=== PATIENT | female | born 1955 ===

== ENCOUNTER 2017-08-28 21:55 | Observation (INO) | payer OTHER ==
--- NOTE | 2017-08-28 22:02 | PDOC ---
History of Present Illness - General Chief Complaint: CVA/TIA Stated Complaint: NUMBNESS LEFT SIDE OF BODY Time Seen by Provider: 08/28/17 22:00 History Source: Patient, Family Exam Limitations: Language Barrier - History of Present Illness Initial Comments: 08/28/17 22:24 This is a 62-year-old female brought in by her family for evaluation of left- sided weakness and numbness. History is via interpretation of the family as patient is [place] and recently new to this country. 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 As per family patient said that when she woke up this morning she had numbness and weakness on her left side the weakness resolved after about 20 minutes but she has really had residual numbness in addition to that the person that was doing the interpretation said to me that a lot of the things she was saying more making any sense and that she appeared to be somewhat confused. The words were clear but he didn't make any sense. PAST MEDICAL HISTORY: no significant history PAST SURGICAL HISTORY: no significant history FAMILY HISTORY: no pertinant history SOCIAL HISTORY: Pt lives with family and is employed. MEDICATIONS: reviewed ALLERGIES: As per nursing notes Review of Systems General: No fevers or chills, no weakness, no weight loss HEENT: No change in vision. No sore throat,. No ear pain CardioVascular: No chest pain or shortness of breath Respiratory:No cough, or wheezing. Gastrointestinal: no nausea, vomitting, diarrhea or constipation, No rectal bleeding Genitourinary: No dysuria, hematuria, or frequency Musculoskeletal: No joint or muscle pain or swelling Neurologic: No headache, vertigo, dizziness or loss of consciousness Psychiatric: nor depression Skin: No rashes or easy bruising Endocrine: no increased thirst or abnormal weight change Allergic: no skin or latex allergy All other systems reviewed and normal Exam: General: Well-nourished well-developed individual, no acute distress HEENT: Throat: Normal, tonsils normal, no erythema or exudate Neck: Supple, no meningeal signs, no lymphadenopathy Eyes::Pupils equal reactive and round, extraocular motion intact Chest: Nontender to palpation Cardiac: S1-S2 normal, regular rate and rhythm, no murmurs rubs or gallops Respiratory: Lungs clear to auscultation bilateral Abdomen: Soft, nondistended, normal bowel sounds, nontender to palpation diffusely Extremities: Warm, dry, no cyanosis, clubbing, or edema Skin: No rashes Neuro: See NIH stroke scale. Psych: Normal mood and affect Medical decision making this is a 8-year-old female brought in by her family for evaluation of a CVA. Patient woke up this morning with left-sided weakness and numbness. Patient has history significant for prior CVA. Patient said the weakness resolved after about 20 minutes and that the numbness has persisted. Here in the emergency room patient has an NIH stroke scale of 3. However was difficult to do as it was via a post splitter and patient did appear to have difficulty following instructions and at one point her family member who is translating said that her verbal responses did not make any sense. We'll obtain a workup including head CT, EKG, CBC, comp, cardiac enzymes, chest x-ray. Patient will need an admission. 12MN This is a 62-year-old female with history of high cholesterol who comes in complaining of left-sided numbness. Patient had some left-sided weakness about 12 hours prior that had resolved. Patient had a workup including head CT head CT was read as negative for any acute pathology. Discussed case with Dr. Dela Cruz. From neurology who recommended the patient be admitted started on a statin however patient is on a cholesterol lowering drug and does not know the name and it may possibly be a statin. Patient was given an aspirin and will need a MRI in the morning without contrast as per Dr. Dela Cruz. Discussed admission with the hospitalist was accepted patient for admission to a observation bed. . Signout given to the admitting hospitalist, who accepts the patient. Discussed plan with the patient family at bedside, Patient and family aware of the plan and agree. Patient is clinically unchanged and stable. Past History - Past Medical History Allergies/Adverse Reactions: Allergies Allergy/AdvReac Type Severity Reaction Status Date / Time No Known Allergies Allergy Verified 08/28/17 21:57 Home Medications: Ambulatory Orders Acetaminophen 500 mg PO BID 08/29/17 Atacand 8 mg PO DAILY 08/29/17 Lipitor 5 mg PO DAILY 08/29/17 Metformin HCl 500 mg PO BID 08/29/17 Prevacid 30 mg PO DAILY 08/29/17 - Suicide/Smoking/Psychosocial Hx Smoking History: Never smoked Hx Alcohol Use: No Drug/Substance Use Hx: No *Physical Exam - Vital Signs Last Vital Signs Temp Pulse Resp BP Pulse Ox 98.5 F 18 132/70 99 08/28/17 21:57 08/28/17 21:57 08/28/17 21:57 08/28/17 21:57 NIH Stroke Scale - Initial Evaluation Level of consciousness: Alert Ask patient the month and their age: Answers both correctly Ask patient to open & close eyes; make fist and let go: Obeys both correctly Best gaze (horizontal eye movement): Normal Visual field testing: No visual field loss Facial paresis (Show teeth/raise eyebrows/close eyes tight): Normal symmetrical movement Motor Function: Left Arm: Normal Motor Function: Right Arm: Normal (extends arm 90 (or 45) degrees for 10 seconds without drift Motor Function: Left Leg: Normal (extends leg 30 degrees for 5 seconds without drift) Motor Function: Right Leg: Normal (extends leg 30 degrees for 5 seconds without drift) Limb Ataxia: No ataxia Sensory(Use pinprick test arms,legs,trunk,face/side to side): Severe to total sensory loss Best language (Describe picture, name items, read sentences): Mild to moderate aphasia Dysarthria (read several words): Normal articulation Extinction and Inattention: No abnormality - Total Score NIH Stroke Scale Score: 3 Discharge Disposition - Diagnosis Cerebrovascular accident (CVA) Qualifiers: CVA mechanism: unspecified Qualified Code(s): I63.9 - Cerebral infarction, unspecified - Discharge Dispostion Condition at time of disposition: Good Decision to Admit order: Yes - Referrals - Patient Instructions - Post Discharge Activity
[2017-08-28 22:42] LABS: URINE APPEARANCE Clear; URINE BILIRUBIN Negative (NEGATIVE); URINE GLUCOSE (UA) Negative (NEGATIVE); URINE KETONE Negative (NEGATIVE); URINE NITRITE Negative (NEGATIVE); URINE PROTEIN Negative (NEGATIVE); URINE UROBILINOGEN 0.2 (0.2-1.0)
[2017-08-28 22:43] LABS: URINE COLOR YELLOW; URINE LEUK ESTERASE TRACE (NEGATIVE)
[2017-08-28 22:48] LABS: URINE BACTERIA FEW /hpf (NEGATIVE); URINE RBC 0-2 /hpf (0-3)
[2017-08-29] MEDS ORDERED: ASPIRIN 81 MG CHEWABLE TABLETS PO ONE (00:04)
[2017-08-29] MEDS ORDERED: ASPIRIN 81 MG CHEWABLE TABLETS ONE (00:15)
[2017-08-29 00:34] LABS: BASO % 0.4 % (0-2.0); HEMOGLOBIN 12.2 GM/dL (10.7-15.3); LYMPH % 36.7 % (8-40); MCH 28.2 pg (25.7-33.7); MCHC 33.1 g/dl (32.0-36.0); MEAN CELL VOLUME 85.4 fl (80-96); MONO % 7.3 % (3.8-10.2); NEUT % 52.6 % (42.8-82.8); PLATELET COUNT 245 K/MM3 (134-434); RBC 4.33 M/mm3 (3.60-5.2); RDW 13.8 % (11.6-15.6); WHITE BLOOD COUNT 9.8 K/mm3 (4.0-10.0)
[2017-08-29 01:10] LABS: ALBUMIN 3.6 g/dl (3.4-5.0); ALK PHOS 50 U/L (45-117); ANION GAP 7 (8-16); BILIRUBIN,TOTAL 0.3 mg/dL (0.2-1.0); BLOOD UREA NITROGEN 13 mg/dL (7-18); CALCIUM 8.9 mg/dL (8.5-10.1); CHLORIDE 109 mmol/L (98-107); CO2 27 mmol/L (21-32); CREATININE 0.9 mg/dL (0.55-1.02); GLUCOSE,RANDOM 123 mg/dL (74-106); SGPT/ALT 28 U/L (12-78); SODIUM 143 mmol/L (136-145)
[2017-08-29 01:16] LABS: POTASSIUM 4.4 mmol/L (3.5-5.1); SGOT/AST 25 U/L (15-37)
[2017-08-29 02:22] VITALS: BMI 43.7
--- NOTE | 2017-08-29 07:20 | HP ---
CHIEF COMPLAINT: left sided numbness and headache PCP: "none as per patient" HISTORY OF PRESENT ILLNESS: Patient is 62 y/o female with a past medical history of a CVA (6 years ago, right sided weakness) and hypertension. Patient Reports within the past 4-5 days she has been experiencing left-sided numbness and headache. Patient describes the headache as a throbbing to the left side of the head nonradiating she does report photosensitivity that is intermittent and within the past week. Patient denies taking any analgesics for the pain. Patient denies any blurred vision, nausea, vomiting, or dizziness. *history obtained with [facility] #[id number] ER course was notable for: (1)CT of head Lacunar infarct in the vicinity of the head of the right caudate nucleus (2)ekg normal Sinus rhythm (3)chest X-ray no active pulmonary disease Recent Travel: none PAST MEDICAL HISTORY: See history of present illness PAST SURGICAL HISTORY:Left tibia fibula ORIF Social History: resides at home with son Smoking: none Alcohol:none Drugs: none Family History: mother: "old age" father: , cva, diabetic Allergies No Known Allergies Allergy (Verified 08/28/17 21:57) HOME MEDICATIONS: Home Medications Medication Instructions Recorded Unobtainable 08/28/17 REVIEW OF SYSTEMS CONSTITUTIONAL: Absent: fever, chills, diaphoresis, generalized weakness, malaise, loss of appetite, weight change HEENT: Absent: rhinorrhea, nasal congestion, throat pain, throat swelling, difficulty swallowing, mouth swelling, ear pain, eye pain, visual changes CARDIOVASCULAR: Absent: chest pain, syncope, palpitations, irregular heart rate, lightheadedness , peripheral edema RESPIRATORY: Absent: cough, shortness of breath, dyspnea with exertion, orthopnea, wheezing, stridor, hemoptysis GASTROINTESTINAL: Absent: abdominal pain, abdominal distension, nausea, vomiting, diarrhea, constipation, melena, hematochezia GENITOURINARY: Absent: dysuria, frequency, urgency, hesitancy, hematuria, flank pain, genital pain MUSCULOSKELETAL: Absent: myalgia, arthralgia, joint swelling, back pain, neck pain SKIN: Absent: rash, itching, pallor HEMATOLOGIC/IMMUNOLOGIC: Absent: easy bleeding, easy bruising, lymphadenopathy, frequent infections ENDOCRINE: Absent: unexplained weight gain, unexplained weight loss, heat intolerance, cold intolerance NEUROLOGIC: present: headache, paresthesia Absent: focal weakness or dizziness, unsteady gait, seizure, mental status changes, bladder or bowel incontinence PSYCHIATRIC: Absent: anxiety, depression, suicidal or homicidal ideation, hallucinations. PHYSICAL EXAMINATION Vital Signs - 24 hr 08/28/17 08/28/17 08/29/17 21:57 22:04 01:30 Temperature 98.5 F 98.3 F Pulse Rate 88 69 Pulse Rate [ 82 Right Radial] Respiratory 18 18 18 Rate Blood Pressure 132/70 122/52 Blood Pressure 136/68 [Left Arm] O2 Sat by Pulse 99 97 99 Oximetry (%) 08/29/17 06:00 Temperature 98.3 F Pulse Rate 75 Pulse Rate [ Right Radial] Respiratory 18 Rate Blood Pressure 103/58 Blood Pressure [Left Arm] O2 Sat by Pulse 99 Oximetry (%) GENERAL: Awake, alert, and fully oriented, in no acute distress. HEAD: Normal with no signs of trauma. EYES: Pupils equal, round and reactive to light, extraocular movements intact, sclera anicteric, conjunctiva clear. No lid lag. EARS, NOSE, THROAT: Ears normal, nares patent, oropharynx clear without exudates. Moist mucous membranes. NECK: Normal range of motion, supple without lymphadenopathy, JVD, or masses. LUNGS: Breath sounds equal, clear to auscultation bilaterally. No wheezes, and no crackles. No accessory muscle use. HEART: Regular rate and rhythm, normal S1 and S2 without murmur, rub or gallop. ABDOMEN: Soft, nontender, not distended, normoactive bowel sounds, no guarding, no rebound, no masses. No hepatomegaly or splenomegaly. MUSCULOSKELETAL: Normal range of motion at all joints. No bony deformities or tenderness. No CVA tenderness. UPPER EXTREMITIES: 2+ pulses, warm, well-perfused. No cyanosis. No clubbing. No peripheral edema. 3/4 (chronic) LOWER EXTREMITIES: 2+ pulses, warm, well-perfused. No calf tenderness. No peripheral edema. 3/4 (chronic) NEUROLOGICAL: Cranial nerves II-XII intact. Normal speech. Normal gait. PSYCHIATRIC: Cooperative. Good eye contact. Appropriate mood and affect. SKIN: Warm, dry, normal turgor, no rashes or lesions noted, normal capillary refill. Laboratory Results - last 24 hr 08/28/17 08/28/1708/28/18 22:40 23:45 23:45 WBC 9.8 RBC 4.33 Hgb 12.2 Hct 37.0 MCV 85.4 MCH 28.2 MCHC 33.1 RDW 13.8 Plt Count 245 MPV 9.0 Absolute Neuts (auto) 5.1 Neutrophils % 52.6 Lymphocytes % 36.7 Monocytes % 7.3 Eosinophils % 3.0 Basophils % 0.4 Nucleated RBC % 0 Sodium 143 Potassium 4.4 Chloride 109 H Carbon Dioxide 27 Anion Gap 7 L BUN 13 Creatinine 0.9 Creat Clearance w eGFR > 60 Random Glucose 123 H Calcium 8.9 Total Bilirubin 0.3 AST 25 ALT 28 Alkaline Phosphatase 50 Creatine Kinase Troponin I Total Protein 8.0 Albumin 3.6 Urine Color Yellow Urine Appearance Clear Urine pH 5.0 Ur Specific [place] <= 1.005 Urine Protein Negative Urine Glucose (UA) Negative Urine Ketones Negative Urine Blood Trace-lysed H Urine Nitrite Negative Urine Bilirubin Negative Urine Urobilinogen 0.2 Ur Leukocyte Esterase Trace H Urine RBC 0-2 Urine WBC 2-3 Urine Bacteria Few 08/28/17 23:45 WBC RBC Hgb Hct MCV MCH MCHC RDW Plt Count MPV Absolute Neuts (auto) Neutrophils % Lymphocytes % Monocytes % Eosinophils % Basophils % Nucleated RBC % Sodium Potassium Chloride Carbon Dioxide Anion Gap BUN Creatinine Creat Clearance w eGFR Random Glucose Calcium Total Bilirubin AST ALT Alkaline Phosphatase Creatine Kinase 120 Troponin I < 0.02 Total Protein Albumin Urine Color Urine Appearance Urine pH Ur Specific [place] Urine Protein Urine Glucose (UA) Urine Ketones Urine Blood Urine Nitrite Urine Bilirubin Urine Urobilinogen Ur Leukocyte Esterase Urine RBC Urine WBC Urine Bacteria ASSESSMENT/PLAN: 1) neuro r/o cva - patient reports Left-sided numbness and headache is much improved since last evening - Pending MRI of brain and carotid Dopplers - Pending echo - aspirin daily - Lipid profile ordered we will start patient on statin, patient reports she has not taken medicine for cholesterol in the past - Frequent neurological assessments - physical therapy evaluation - appreciate the input of neurology (Lanie) 2) cardiovascular hypertension - She denies taking any antihypertensives. Strict BP monitoring f/e/n - Low sodium low-cholesterol diet - replete electrolytes prn ppx - heparin - scd/roby dispo: patietn requires observation telemetry Visit type - Emergency Visit Emergency Visit: Yes ED Registration Date: 08/29/17 Care time: The patient presented to the Emergency Department on the above date and was hospitalized for further evaluation of their emergent condition. - New Patient This patient is new to me today: Yes Date on this admission: 08/29/17 - Critical Care Critical Care patient: No Hospitalist Screening - Colonoscopy Questionnaire Colonoscopy Questionnaire: Colonoscopy Questionnaire - Patient: 50 - 75 years old and never had a screening colonoscopy: No History of colon or rectal polyps, or CA: Yes History of IBD, Crohn's disease or UC: No History of abdominal radiation therapy as a child: No - Relative: 1 with colon or rectal CA, or polyps at age 60 or younger: No Colon or rectal CA diagnosed at age 45 or younger: No Multiple relatives with colon or rectal CA: No - Outcome: Screening Result: Positive Screen
[2017-08-29] MEDS ORDERED: ZOLPIDEM TARTRATE 5 MG TABLET PO PRN (08:39)
[2017-08-29] MEDS ORDERED: ACETAMINOPHEN 325 MG TABLET (FP) PO PRN (08:39)
--- NOTE | 2017-08-29 09:26 | CONSULT ---
Consult - text type - Consultation Consultation Note: Neurology History of Present Illness Chief Complaint: CVA/TIA Stated Complaint: NUMBNESS LEFT SIDE OF BODY This is a 62-year-old female brought in by her family for evaluation of left- sided weakness and numbness. History was via interpretation of the family as patient is [place] and recently new to this country. Reportedly, the patient did have a CVA 3 years ago with residual right-sided numbness but no weakness. As per family patient said that when she woke up the morning of admission she had numbness and weakness on her left side the weakness resolved after about 20 minutes. She was brought to the hospital and I spoke with ER physician. She was not in TPA window. CT head completed and no acute changes. I advised MRI brain to rule out CVA. Also advised ASA 325 mg one time with ASA 81mg daily. Start Statin therapy as well. This AM, reports feeling much better and denies focal deficits though reports numbness in b/l lower extremities. Past History - Past Medical History Allergies/Adverse Reactions: Allergies Allergy/AdvReac Type Severity Reaction Status Date / Time No Known Allergies Allergy Verified 08/28/17 21:57 Active Medications Acetaminophen (Tylenol -) 650 mg PO Q4H PRN PRN Reason: PAIN LEVEL 1-5 Aspirin (Ecotrin -) 81 mg PO DAILY JANIE Atorvastatin Calcium (Lipitor -) 20 mg PO HS JANIE Docusate Sodium (Colace -) 100 mg PO TID JNAIE Heparin Sodium (Porcine) (Heparin -) 5,000 unit SQ BID JANIE Pantoprazole Sodium (Protonix -) 40 mg PO DAILY JANIE Zolpidem Tartrate (Ambien -) 5 mg PO HS PRN PRN Reason: INSOMNIA - Suicide/Smoking/Psychosocial Hx Smoking History: Never smoked Hx Alcohol Use: No Drug/Substance Use Hx: No Review of Systems General: No fevers or chills, no weakness, no weight loss HEENT: No change in vision. No sore throat,. No ear pain CardioVascular: No chest pain or shortness of breath Respiratory:No cough, or wheezing. Gastrointestinal: no nausea, vomitting, diarrhea or constipation, No rectal bleeding Genitourinary: No dysuria, hematuria, or frequency Musculoskeletal: No joint or muscle pain or swelling Neurologic: No headache, vertigo, dizziness or loss of consciousness Psychiatric: nor depression Skin: No rashes or easy bruising Endocrine: no increased thirst or abnormal weight change Allergic: no skin or latex allergy All other systems reviewed and normal *Physical Exam Vital Signs Period Temp Pulse Resp BP Sys/Mix Pulse Ox Last 24 Hr 98.3 F-98.5 F 69-88 18-18 103-136/52-70 97-99 GENERAL: Awake, alert, and fully oriented, in no acute distress. HEAD: Normal with no signs of trauma. EYES: Pupils equal, round and reactive to light, extraocular movements intact, sclera anicteric, conjunctiva clear. No lid lag. EARS, NOSE, THROAT: Ears normal, nares patent, oropharynx clear without exudates. Moist mucous membranes. NECK: Normal range of motion, supple without lymphadenopathy, JVD, or masses. LUNGS: Breath sounds equal, clear to auscultation bilaterally. No wheezes, and no crackles. No accessory muscle use. HEART: Regular rate and rhythm, normal S1 and S2 without murmur, rub or gallop. ABDOMEN: Soft, nontender, not distended, normoactive bowel sounds, no guarding, no rebound, no masses. No hepatomegaly or splenomegaly. MUSCULOSKELETAL: Normal range of motion at all joints. No bony deformities or tenderness. No CVA tenderness. UPPER EXTREMITIES: 2+ pulses, warm, well-perfused. No cyanosis. No clubbing. No peripheral edema. LOWER EXTREMITIES: 2+ pulses, warm, well-perfused. No calf tenderness. No peripheral edema. NEUROLOGICAL: Cranial nerves II-XII intact. Normal speech. Decreased LT in distal lower extremities PSYCHIATRIC: Cooperative. Good eye contact. Appropriate mood and affect. SKIN: Warm, dry, normal turgor, no rashes or lesions noted, normal capillary refill. CBCD WBC 9.8 K/mm3 (4.0-10.0) 08/28/17 23:45 RBC 4.33 M/mm3 (3.60-5.2) 08/28/17 23:45 Hgb 12.2 GM/dL (10.7-15.3) 08/28/17 23:45 Hct 37.0 % (32.4-45.2) 08/28/17 23:45 MCV 85.4 fl (80-96) 08/28/17 23:45 MCHC 33.1 g/dl (32.0-36.0) 08/28/17 23:45 RDW 13.8 % (11.6-15.6) 08/28/17 23:45 Plt Count 245 K/MM3 (134-434) 08/28/17 23:45 MPV 9.0 fl (7.5-11.1) 08/28/17 23:45 CMP Sodium 143 mmol/L (136-145) 08/28/17 23:45 Potassium 4.4 mmol/L (3.5-5.1) 08/28/17 23:45 Chloride 109 mmol/L (98-107) H 08/28/17 23:45 Carbon Dioxide 27 mmol/L (21-32) 08/28/17 23:45 Anion Gap 7 (8-16) L 08/28/17 23:45 BUN 13 mg/dL (7-18) 08/28/17 23:45 Creatinine 0.9 mg/dL (0.55-1.02) 08/28/17 23:45 Creat Clearance w eGFR > 60 (>60) 08/28/17 23:45 Random Glucose 123 mg/dL (74-106) H 08/28/17 23:45 Calcium 8.9 mg/dL (8.5-10.1) 08/28/17 23:45 Total Bilirubin 0.3 mg/dL (0.2-1.0) 08/28/17 23:45 AST 25 U/L (15-37) 08/28/17 23:45 ALT 28 U/L (12-78) 08/28/17 23:45 Alkaline Phosphatase 50 U/L (45-117) 08/28/17 23:45 Total Protein 8.0 g/dl (6.4-8.2) 08/28/17 23:45 Albumin 3.6 g/dl (3.4-5.0) 08/28/17 23:45 CARDIAC ENZYMES Creatine Kinase 120 IU/L (26-192) 08/28/17 23:45 Troponin I < 0.02 ng/ml (0.00-0.05) 08/28/17 23:45 CT head reviewed Plan: 62-year-old female brought in by her family for evaluation of left-sided weakness and numbness. History was via interpretation of the family as patient is [place] and recently new to this country. Reportedly, the patient did have a CVA 3 years ago with residual right-sided numbness but no weakness. As per family patient said that when she woke up the morning of admission she had numbness and weakness on her left side the weakness resolved after about 20 minutes. She was brought to the hospital and I spoke with ER physician. She was not in TPA window. CT head completed and no acute changes. I advised MRI brain to rule out CVA. Also advised ASA 325 mg one time with ASA 81mg daily. Start Statin therapy as well. This AM, reports feeling much better and denies focal deficits though reports numbness in b/l lower extremities. Awaiting MRI brain Continue ASA Check LDL, goal <100 (but <70 if prior CVA) Continue statin telemetry monitoring Carotid Doppler Echo PT/OT Continue hydration DVT ppx
[2017-08-29] MEDS: PANTOPRAZOLE 40 MG TABLET (FP) PO SCH (10:07)
[2017-08-29] MEDS: ASPIRIN COATED 81 MG TABLET.EC PO SCH (10:07)
[2017-08-29] MEDS: HEPARIN NA (PORCINE) 5,000 UNITS/ML 1ML VIAL SQ SCH ×2 (10:08→21:24)
--- NOTE | 2017-08-29 10:42 | EKG ---
Test Reason : Blood Pressure : / mmHG Vent. Rate : 088 BPM Atrial Rate : 088 BPM P-R Int : 148 ms QRS Dur : 086 ms QT Int : 372 ms P-R-T Axes : 067 -22 023 degrees QTc Int : 450 ms NORMAL SINUS RHYTHM NORMAL ECG NO PREVIOUS ECGS AVAILABLE Confirmed by JAMI JANG, TANI ([id number]) on 08/29/2017 10:42:05 AM Referred By: DR FULLER Confirmed By:TANI FARRELL MD
[2017-08-29] MEDS: DOCUSATE SODIUM 100 MG CAPSULE (FP) PO SCH ×2 (14:00→21:23)
--- NOTE | 2017-08-29 16:17 | CONSULT ---
Admitting History and Physical - Primary Care Physician PCP: Aiyana Mauricio - Admission History of Present Illness: HISTORY OF PRESENT ILLNESS: Patient is 62 y/o female with a past medical history of a CVA (6 years ago, right sided weakness) and hypertension. Patient Reports within the past 4-5 days she has been experiencing left-sided numbness and headache. Patient describes the headache as a throbbing to the left side of the head nonradiating she does report photosensitivity that is intermittent and within the past week. 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) - Past Medical History ...: No - Smoking History Smoking history: Never smoked - Alcohol/Substance Use Hx Alcohol Use: No History - Admission Reason For Visit: NUMBNESS LEFT SIDE OF BODY - Diagnostics CT Scan: Report Reviewed MRI: Report Reviewed - General Mental Status: Alert and Oriented, Awake and Alert, Able to Follow Commands Attention: Intact Ability to Follow Directions: Good Head/Neck Control: WFL - Hearing Hearing: Normal Speech Evaluation - Communication Primary Language: FRISIAN Communication: Yes: Within Normal Limits Oral Expression Ability: Yes: No Impairment - Speech Production Able to Make Needs Known: Yes: WNL Intelligibility: Yes: WNL - Speech Characteristics Voice Loudness: Normal Voice Pitch: Yes: Normal Voice Phonatory-based Quality: Yes: Normal Speech Pattern: Normal Speech Clarity: < 100% Nasal Resonance: Normal Articulation: Yes: Precise - Language/Auditory Comprehension Follows: Yes: 1 Stage Simple Commands - Language/Verbal Expression Able to Respond to Simple Queries: Yes: WNL Able to Communicate Wants and Needs: Yes: WNL Functional Communication Status: Yes: WNL - Memory/Perception detention Memory: Yes: WNL Short Term Memory: Yes: WNL - Swallow Evaluation/Bedside Assessment Current Nutritional Intake: Regular (vegetarian diet), Thin Liquids Oral Secretions: Yes: WFL Facial Symmetry at Rest: Symmetrical Facial Symmetry on Retraction: Symmetrical Facial Movement: Controlled Against Resistance Opening: Normal Against Resistance Closing: Normal Pucker Lips: Normal Smile: Normal Lingual Movement: Normal, Symmetric Lingual Speed of Movement: Normal Lingual Movement Strgth Against Opposition: Normal Velopharyngeal Movement: Normal Laryngeal Elevation: WFL Laryngeal Movement: Able to Palpate Rate of Intake: WFL Bolus Size: WFL Labial Seal: WFL Chewing: WFL Oral Prep Time: WFL A-P Transit: WFL Timing of Swallow: WFL Coughing/Throat Clear: No Change in Voice: No Recommendations - Speech Evaluation, Impression/Plan Impression: Speech/Swallowing/Cognition intact - Dysphagia Impressions/Plan Swallowing Skills: WFL Dysphagia Impressions: No Impairment - Recommendations Diet Consistency: Regular Medication Administration: Whole with water Liquids: Thin Liquids
[2017-08-29] MEDS ORDERED: ATORVASTATIN CA 20 MG TABLET (FP) PO SCH (22:00)
[2017-08-30] MEDS: DOCUSATE SODIUM 100 MG CAPSULE (FP) PO SCH (05:25)
[2017-08-30 06:54] VITALS: BP 129/70; PULSE 73; TEMP 98.4
--- NOTE | 2017-08-30 07:38 | DS ---
Physical Exam: SUBJECTIVE: Patient seen and examined, Patient is ambulatory at bedside, family at side. Patient denies any headache blurred vision, patient denies any paresthesia. OBJECTIVE:Patient is 62 y/o female with a past medical history of a CVA (6 years ago, right sided weakness) and hypertension. Patient Reports within the past 4-5 days she has been experiencing left-sided numbness and headache. Patient describes the headache as a throbbing to the left side of the head nonradiating she does report photosensitivity that is intermittent and within the past week. Patient denies taking any analgesics for the pain. Patient denies any blurred vision, nausea, vomiting, or dizziness. *history obtained with [email or web address] #[id number] ER course was notable for: (1)CT of head Lacunar infarct in the vicinity of the head of the right caudate nucleus (2)ekg normal Sinus rhythm (3)chest X-ray no active pulmonary disease Vital Signs Period Temp Pulse Resp BP Sys/Mix Pulse Ox Last 24 Hr 97.8 F-98.4 F 70-73 18-18 98-129/51-70 99-100 PHYSICAL EXAM GENERAL: Awake, alert, and fully oriented, in no acute distress. HEAD: Normal with no signs of trauma. EYES: Pupils equal, round and reactive to light, extraocular movements intact, sclera anicteric, conjunctiva clear. No lid lag. EARS, NOSE, THROAT: Ears normal, nares patent, oropharynx clear without exudates. Moist mucous membranes. NECK: Normal range of motion, supple without lymphadenopathy, JVD, or masses. LUNGS: Breath sounds equal, clear to auscultation bilaterally. No wheezes, and no crackles. No accessory muscle use. HEART: Regular rate and rhythm, normal S1 and S2 without murmur, rub or gallop. ABDOMEN: Soft, nontender, not distended, normoactive bowel sounds, no guarding, no rebound, no masses. No hepatomegaly or splenomegaly. MUSCULOSKELETAL: Normal range of motion at all joints. No bony deformities or tenderness. No CVA tenderness. UPPER EXTREMITIES: 2+ pulses, warm, well-perfused. No cyanosis. No clubbing. No peripheral edema. 3/4 (chronic) LOWER EXTREMITIES: 2+ pulses, warm, well-perfused. No calf tenderness. No peripheral edema. 3/4 (chronic) NEUROLOGICAL: Cranial nerves II-XII intact. Normal speech. Normal gait. PSYCHIATRIC: Cooperative. Good eye contact. Appropriate mood and affect. SKIN: Warm, dry, normal turgor, no rashes or lesions noted, normal capillary refill. LABS CBC WBC 8.1 K/mm3 (4.0-10.8) 08/29/17 10:04 RBC 4.42 M/mm3 (3.60-5.2) 08/29/17 10:04 Hgb 12.6 GM/dl (10.7-15.3) 08/29/17 10:04 Hct 37.1 % (32.4-45.2) 08/29/17 10:04 MCV 83.9 fl (80-96) 08/29/17 10:04 MCH 28.5 pg (25.7-33.7) 08/29/17 10:04 MCHC 34.0 g/dl (32.0-36.0) 08/29/17 10:04 RDW 12.8 % (11.6-15.6) 08/29/17 10:04 Plt Count 250 K/MM3 (134-434) 08/29/17 10:04 MPV 8.8 fl (7.5-11.1) 08/29/17 10:04 Absolute Neuts (auto) 4.1 # 08/29/17 10:04 Neutrophils % 48.8 % (42.8-82.8) 08/29/17 10:04 Lymphocytes % 41.2 % (8-40) H 08/29/17 10:04 Monocytes % 6.4 % (3.8-10.2) 08/29/17 10:04 Eosinophils % 3.0 % (0-4.5) 08/29/17 10:04 Basophils % 0.6 % (0-2.0) 08/29/17 10:04 Nucleated RBC % 0 % (0-0) 08/28/17 23:45 ESR 32 mm/hr (0-30) H 08/29/17 08:45 CMP Sodium 138 mmol/L (136-145) 08/29/17 10:04 Potassium 3.7 mmol/L (3.5-5.1) 08/29/17 10:04 Chloride 107 mmol/L (98-107) 08/29/17 10:04 Carbon Dioxide 26 mmol/L (22-28) 08/29/17 10:04 Anion Gap 5 (8-16) L 08/29/17 10:04 BUN 14 mg/dl (7-18) 08/29/17 10:04 Creatinine 1.0 mg/dl (0.6-1.3) 08/29/17 10:04 Creat Clearance w eGFR 56.56 (>60) 08/29/17 10:04 Random Glucose 113 mg/dl (74-106) H 08/29/17 10:04 Hemoglobin A1c % 5.9 % (4.8-6.0) 08/29/17 10:04 Calcium 8.9 mg/dl (8.4-10.2) 08/29/17 10:04 Phosphorus 3.0 mg/dl (2.5-4.6) 08/29/17 10:04 Magnesium 2.2 mg/dL (1.8-2.4) 08/29/17 10:04 Total Bilirubin 0.3 mg/dL (0.2-1.0) 08/28/17 23:45 AST 25 U/L (15-37) 08/28/17 23:45 ALT 28 U/L (12-78) 08/28/17 23:45 Alkaline Phosphatase 50 U/L (45-117) 08/28/17 23:45 Creatine Kinase 84 IU/L (26-192) 08/29/17 08:40 Troponin I < 0.03 ng/ml (0.00-0.06) 08/29/17 10:04 C-Reactive Protein 0.5 MG/DL (0.00-0.3) H 08/29/17 10:04 Total Protein 8.0 g/dl (6.4-8.2) 08/28/17 23:45 Albumin 3.6 g/dl (3.4-5.0) 08/28/17 23:45 Triglycerides 153 mg/dl (35-160) 08/29/17 10:04 Cholesterol 146 mg/dl 08/29/17 10:04 Total LDL Cholesterol 86 mg/dl 08/29/17 10:04 HDL Cholesterol 29 mg/dl (29-89) 08/29/17 10:04 Vitamin B12 128 pg/ml (180-914) L 08/29/17 10:04 TSH 1.75 uIU/ml (0.358-3.74) 08/29/17 10:04 IMAGING MRI of brain moderate volume loss, right anterior periventriuclar old lacunar infarct, focal chronic infarct of the left posterior frontal/parietal junction, small left occipital lobe. echo LV wnl normal ejection fraction moderate TR carotid Dopplers: No hemodynamic significant stenosis. HOSPITAL COURSE: patient was admitted from the emergency department to telemetry observation for rule out CVA, patient reports left-sided numbness and headache that resolved upon arrival to the floor. MRI, carotid Dopplers, an echo noted as above. patient was placed on aspirin daily. Lipitor profile noted. vitamin B12 was noted to be significantly low patient was given injection of vitamin B12. Dr. Dela Cruz neurologist was consulted. patient has a past medical history of hypertension, home medications continued blood pressure remained at goal throughout admission. PLAN - discharge home with strict follow-up to PCP - Continue vitamin B12 supplementation - Return precautions reviewed Date of Admission:08/29/17 Date of Discharge: 08/30/17 Minutes to complete discharge: 45 Discharge Summary Reason For Visit: NUMBNESS LEFT SIDE OF BODY Current Active Problems All Active Problems Hemiparesis affecting right side as late effect of cerebrovascular accident (CVA ) (Chronic) Hypertension (Chronic) Vitamin B12 deficiency (Chronic) Condition: Good - Instructions Diet, Activity, Other Instructions: continue all medications as prescribed your vitamin b12 was noted to be low, you received an injection of vitamin B12 today Please continue vitamin B12 supplements daily Please follow-up with your primary care physician within one week Referrals: Mateusz Dela Cruz MD [Staff Physician] - Chavez Arenas MD [Primary Care Provider] - 1 Week Disposition: HOME - Home Medications Comprehensive Discharge Medication List: Ambulatory Orders Acetaminophen 500 mg PO BID 08/29/17 Atacand 8 mg PO DAILY 08/29/17 Lipitor 5 mg PO DAILY 08/29/17 Metformin HCl 500 mg PO BID 08/29/17 Prevacid 30 mg PO DAILY 08/29/17 This patient is new to me today: No Emergency Visit: Yes ED Registration Date: 08/29/17 Care time: The patient presented to the Emergency Department on the above date and was hospitalized for further evaluation of their emergent condition. Critical Care patient: No - Discharge Referral Referred to [facility] Med P.C.: No
[2017-08-30] MEDS: PANTOPRAZOLE 40 MG TABLET (FP) PO SCH (10:06)
[2017-08-30] MEDS: ASPIRIN COATED 81 MG TABLET.EC PO SCH (10:06)
[2017-08-30] MEDS: HEPARIN NA (PORCINE) 5,000 UNITS/ML 1ML VIAL SQ SCH (10:06)
[2017-08-30 10:09] LABS: BASO % 0.6 % (0-2.0); HEMATOCRIT 37.1 % (32.4-45.2); HEMOGLOBIN 12.6 GM/dl (10.7-15.3); LYMPH % 41.2 % (8-40); MCH 28.5 pg (25.7-33.7); MEAN CELL VOLUME 83.9 fl (80-96); MEAN PLT VOLUME 8.8 fl (7.5-11.1); MONO % 6.4 % (3.8-10.2); NEUT % 48.8 % (42.8-82.8); PLATELET COUNT 250 K/MM3 (134-434); RBC 4.42 M/mm3 (3.60-5.2); RDW 12.8 % (11.6-15.6); WHITE BLOOD COUNT 8.1 K/mm3 (4.0-10.8)
[2017-08-30 10:19] LABS: INR 0.96 (0.82-1.09); PROTHROMBIN TIME (PATIENT) 10.8 SEC (10.2-13.0)
[2017-08-30 10:23] LABS: ANION GAP 5 (8-16); BLOOD UREA NITROGEN 14 mg/dl (7-18); CALCIUM 8.9 mg/dl (8.4-10.2); CHLORIDE 107 mmol/L (98-107); CO2 26 mmol/L (22-28); GLUCOSE,RANDOM 113 mg/dl (74-106); MAGNESIUM 2.2 mg/dL (1.8-2.4); POTASSIUM 3.7 mmol/L (3.5-5.1); SODIUM 138 mmol/L (136-145)
[2017-08-30] MEDS ORDERED: CYANOCOBALAMIN (VITAMIN B-12) 1000 MCG/1 ML VIAL IM ONE (12:26)
[2017-08-30] MEDS ORDERED: metFORMIN HCL 500 MG TABLET (FP) PO SCH (16:30)
[2017-08-31] MEDS ORDERED: VALSARTAN 80 MG TABLET (UD) PO SCH (10:00)
[2017-08-31] MEDS ORDERED: PREVACID 30 MG PO SCH (10:00)
== END 2017-08-30 13:20 | disposition home or self-care (01) ==
LOC: FER 21:55 → FM/S 08-29 01:09 → UNDOADMOB 08-29 01:30 → FM/S 08-29 01:30
PROVIDERS: ADMIT Internal Medicine; ATTEND Nurse Practitioner Family
PROC: 3E023GC Introduction of Other Therapeutic Substance into Muscle, Percutaneous Approach (ICD-10-PCS; principal; 2017-08-29)
DX: I63.9 Cerebral infarction, unspecified (principal); I10 Essential (primary) hypertension; E53.8 Deficiency of other specified B group vitamins; I69.351 Hemiplegia and hemiparesis following cerebral infarction affecting right dominant side
CPT/HCPCS: 36415; 70450-TC; 70551-TC; 71045-TC-FY; 80048; 80053; 80061; 81003; 81015; 82550; 82607; 83036; 83735; 84100; 84443; 84484; 85025; 85610; 85651; 86140; 87086; 93005; 93306-TC; 93880-TC; 97116-GP; 97161-GP; 99285-25; G0378; J1644

== ENCOUNTER 2018-10-07 23:07 | Emergency (ER) | payer OTHER ==
[2018-10-07 23:19] VITALS: BP 136/76; PULSE 92; TEMP 98.7; BMI 30.1
--- NOTE | 2018-10-07 23:28 | PDOC ---
History of Present Illness - General Chief Complaint: Pain, Acute Stated Complaint: DIFFICULTY SWALLOWING Time Seen by Provider: 10/07/18 23:21 History Source: Patient Exam Limitations: No Limitations - History of Present Illness Initial Comments: 10/07/18 23:25 This is a 63-year-old female who comes in complaining of a sore throat. Patient does have a sore throat times one day. Patient denies any fevers or chills. Patient denies any cough congestion or shortness of breath. Patient denies any chest pain nausea vomiting or diarrhea. Patient is complaining that it is difficult for her to talk and family says that her voice has changed because of the sore throat. Otherwise he has a history of hypertension high cholesterol. Allergies: as per nursing notes Past Medical History: hyperTension and high cholesterol and a CVA Social history: Lives with family. No smoking. No alcohol. No illicit drugs. Surgical history: None General: No fevers or chills, no weakness, no weight loss HEENT: No change in vision. + sore throat,. No ear pain CardioVascular: no chest discomfort. No shortness of breath Respiratory:No cough, or wheezing. Gastrointestinal: no nausea, vomiting, diarrhea or constipation, No rectal bleeding Genitourinary: No dysuria, hematuria, or frequency Musculoskeletal: No joint or muscle pain or swelling Neurologic: No headache, vertigo, dizziness or loss of consciousness Psychiatric: nor depression Skin: No rashes or easy bruising Endocrine: no increased thirst or abnormal weight change Allergic: no skin or latex allergy All other systems reviewed and normal GENERAL: The patient is awake, alert, and fully oriented, in no acute distress. Throat: There is some erythema of the posterior oropharynx otherwise are as no exudate and tonsils are otherwise normal There is some small bilateral l lymphadenopathy HEAD: Normal with no signs of trauma. EYES: Pupils equal, round and reactive to light, extraocular movements intact, sclera anicteric, conjunctiva clear. EXTREMITIES:atraumatic, Normal range of motion, no edema. NEUROLOGICAL: Normal speech, normal gait. PSYCH: Normal mood, normal affect. SKIN: Warm, Dry, normal turgor, no rashes or lesions noted. Assessment and plan: This is a 63-year-old female with sore throat. Patient is afebrile there is no exudate. Patient reassured and discharged home told to follow up with her primary care doctor if not better in 2 or 3 days. 10/07/18 23:30 Past History - Past Medical History Allergies/Adverse Reactions: Allergies Allergy/AdvReac Type Severity Reaction Status Date / Time No Known Allergies Allergy Verified 08/28/17 21:57 Home Medications: Ambulatory Orders Acetaminophen 500 mg PO BID 08/29/17 Atacand 8 mg PO DAILY 08/29/17 Lipitor 5 mg PO DAILY 08/29/17 Metformin HCl 500 mg PO BID 08/29/17 Prevacid 30 mg PO DAILY 08/29/17 Acetaminophen [Tylenol .Regular Strength -] 650 mg PO Q4H PRN tablet 08/30/17 Aspirin Coated [Ecotrin -] 81 mg PO DAILY #30 tablet.ec 08/30/17 Cyanocobalamin [Vitamin B12 -] 100 mcg PO DAILY #30 tablet 08/30/17 Cancer: No Cardiac Disorders: No CVA: Yes (RIGHT SIDED WEAKNESS , WITH RESIDUAL R UE WEAKNESS PER PT'S SON.) COPD: No CHF: No Dementia: No Diabetes: No GI Disorders: No Disorders: No HTN: Yes Hypercholesterolemia: Yes Liver Disease: No Seizures: No Thyroid Disease: No - Surgical History Abdominal Surgery: No Appendectomy: No Cardiac Surgery: No Cholecystectomy: No Lung Surgery: No Neurologic Surgery: No Orthopedic Surgery: Yes (rt lower leg w/ metal implant) - Suicide/Smoking/Psychosocial Hx Smoking History: Never smoked Have you smoked in the past 12 months: No Information on smoking cessation initiated: No Hx Alcohol Use: No Drug/Substance Use Hx: No Substance Use Type: None Hx Substance Use Treatment: No *Physical Exam - Vital Signs Last Vital Signs Temp Pulse Resp BP Pulse Ox 98.7 F 92 H 16 136/76 97 10/07/18 23:16 10/07/18 23:16 10/07/18 23:16 10/07/18 23:16 10/07/18 23:16 *DC/Admit/Observation/Transfer Diagnosis at time of Disposition: Pharyngitis Qualifiers: Pharyngitis/tonsillitis etiology: unspecified etiology Qualified Code(s): J02.9 - Acute pharyngitis, unspecified - Discharge Dispostion Disposition: HOME Condition at time of disposition: Stable Decision to Admit order: No - Referrals Referrals: Chavez Arenas MD [Primary Care Provider] - - Patient Instructions Additional Instructions: Take Tylenol or Motrin as needed for the pain Return to the emergency department immediately with ANY new, persistent or worsening symptoms. Continue any medications as previously prescribed by your physician. You should follow up with your primary doctor as soon as possible regarding today's emergency department visit. . Please make sure your doctor reviews the results of your emergency evaluation. Thank you for coming to the Emergency Department today for your care. It was a pleasure to see you today. Please note that your evaluation is INCOMPLETE until you follow-up with your doctor. - Post Discharge Activity
== END 2018-10-07 23:36 | disposition home or self-care (01) ==
LOC: FER 23:07
DX: J02.9 Acute pharyngitis, unspecified (principal); I10 Essential (primary) hypertension; E78.00 Pure hypercholesterolemia, unspecified
CPT/HCPCS: 99281-25

== ENCOUNTER 2019-04-01 12:08 | Emergency (ER) | payer OTHER ==
[2019-04-01] MEDS ORDERED: SODIUM CHLORIDE 1,000 ML IV SCH (12:15)
--- NOTE | 2019-04-01 12:18 | PDOC ---
Attending Attestation - Resident Resident Name: JeffTrent - ED Attending Attestation I have performed the following: I have examined & evaluated the patient, The case was reviewed & discussed with the resident, I agree w/resident's findings & plan, Exceptions are as noted - HPI HPI: 04/01/19 12:18 64y F hx of CVA (residual mild R sided deficits) HTN, presents with weakness/ AMS since approx 10am baseline pt ambulates/talks and fully functional. seen walking around at 8:30 and 10am. was noted to be altered refusing 10:30am upon arrival BGM was 108 - Physicial Exam PE: 04/01/19 12:49 Exam: GENERAL: The patient is awake, intermittent somnolent but easily arousable to verbal stimulus HEAD: Normocephalic, atraumatic. EYES: extraoccular movement normal to the L, (does not appear to cross midline to R side) ENT: aphasic NECK: Normal range of motion, supple LUNGS: Breath sounds equal, clear to auscultation bilaterally. No wheezes, no rhonchi, no rales. HEART: Regular rate and rhythm, without murmur, rub or gallop. ABDOMEN: Soft, nontender, No guarding, no rebound.No CVA tenderness EXTREMITIES: normal movent of LUE/LLE, NEUROLOGICAL: No facial assymetry, no movement of RUE/RLE to pain PSYCH: unable to assess SKIN: Warm, Dry, normal turgor, - Critical Care Time Total Critical Care Time: 35 Critical Care Statement: The care of this patient involved high complexity decision making to prevent further life threatening deterioration of the patient 's condition and/or to evaluate & treat vital organ system(s) failure or risk of failure. - Medical Decision Making 04/01/19 12:35 The patients last known normal was 10am - per family members, the pt was seen walking around at 8:30, went back to her bedroom to sleep. left her room around 10am, walked to the couch in living room and pt was offered food around 10:30 but was unable to eat. Unable to obtain history as pt is not verbally respnsive. Upon arrival, code aldana was obtained ct head was neg for acute bleed will give TPA as onset of stroke is approximately 2.5 hrs. pt was consented through dilan in [facility] and also through pts son Xi sánchez tele conference 04/01/19 12:48 TPA bolus was started at 12:39- currently running pt seems to be having some mild improvement, with movement of her RLE to stimulus 04/01/19 12:52 case discussed with [facility] accepted for transfer by Dr. Gonzales (Neuro interventional) and ED attending for potential thrombectomy will defer CTA here. Pts vitals normal 04/01/19 12:59 EMS arrived for transfer to [facility] tPA Exclusion Checklist 0-3hr - Time Elapsed Date last known well: 04/01/19 Time last known well: 10:00 (elpased time auto calculated (approx 2.5 hrs from time of onset to arrival)) Elaspsed time: 5 Day(s) and 21 Hour(s) and 25 Minutes - Thrombolytic Therapy Candidate Is the patient eligible for Thrombolytic Therapy?: Yes - Exclusion Criteria 0-3hr SBP greater than 185 or DBP greater than 110mmHg despite tx: No Recent IC/spinal surgery,head trauma or stroke w/in last 3mo: No Hx of previous IC hemorrhage, IC neoplasm, AVM or aneurysm: No Active internal bleeding: No Blding diathesis(low plt ct, inc PTT,INR>1.7 or use of NOAC): No Symptoms suggest subarachnoid hemorrhage: No CT demonstrates multilobar infarct(>1/3 cerebral hemiphere): No Arterial puncture at noncompressible site in previous 7 days: No Blood glucose concentration less than 50mg/dL (2.7mmol/L): No - Relative Exclusion Criteria 0-3h Life expectancy <1yr/severe co-morbid illness/AUDIOLOGY ASSISTANT on admit: No : No Patient/family refused: No Rapid improvement: No Stroke severity too mild: No Recent acute SD (w/in previous 3 months): No Seizure at onset with postictal residual neuro impairments: No Major surgery or serious trauma w/in previous 14 days: No Recent GI or hemorrhage (w/in previous 21 days): No
[2019-04-01] MEDS ORDERED: ALTEPLASE 100MG 100 MG IVPB ONE (12:24)
[2019-04-01 12:25] VITALS: BMI 33.2
[2019-04-01] MEDS ORDERED: ALTEPLASE 100 MG VIAL IVPB ONE (12:27)
[2019-04-01] MEDS ORDERED: ALTEPLASE BOLUS IVPUSH ONE (12:27)
[2019-04-01 12:49] LABS: INR 0.88 (0.83-1.09); PROTHROMBIN TIME (PATIENT) 10.4 SEC (9.7-13.0)
[2019-04-01 12:51] LABS: ACTIVATED PTT 28.3 SECONDS (25.2-36.5)
--- NOTE | 2019-04-01 13:02 | PDOC ---
*Physical Exam - Vital Signs Last Vital Signs Temp Pulse Resp BP Pulse Ox 90 16 137/80 100 04/01/19 12:10 04/01/19 12:10 04/01/19 12:10 04/01/19 12:10 ED Treatment Course - ADDITIONAL ORDERS Additional order review: Laboratory Results 04/01/19 04/01/19 12:23 12:20 PT with INR 10.40 INR 0.88 PTT (Actin FS) 28.3 POC Glucometer 108 04/01/19 12:23 POC Glucometer 108 Discharge - Discharge Information Problems reviewed: Yes Clinical Impression/Diagnosis: Cerebrovascular accident (CVA) Qualifiers: CVA mechanism: unspecified Qualified Code(s): I63.9 - Cerebral infarction, unspecified Condition: Critical Disposition: TRANSFER ACUTE CARE/OTHER HOSP - Admission No - Follow up/Referral Referrals: Chavez Arenas MD [Primary Care Provider] - - Patient Discharge Instructions - Post Discharge Activity - Transfer to Acute Care Facility Receiving Facility Name: [place] [address] Accepting Physician:: Dr. Vinson
--- NOTE | 2019-04-01 13:05 | PDOC ---
History of Present Illness - General Chief Complaint: CVA/TIA Stated Complaint: R/O STROKE Time Seen by Provider: 04/01/19 12:17 History Source: Patient Exam Limitations: No Limitations - History of Present Illness Initial Comments: 04/01/19 13:54 64 yo female pmh CVA with R sided residual deficits and HTN presents tp the ED via EMS with sudden onset global aphasia and worsening weakness on the right side of her body, became non ambulatory at 10 am. On initial evaluation, pt noted to have right sided neglect, not following commands (speaks Kiswahili, Niece at bedside translating) however, opens eyes spontaneously, move left side of body and is protecting airway. At baseline, pt AOX4 and ambulatory. BGM 108 on arrival, pt taken for head CT immediately as code stroke. Past History - Past Medical History Allergies/Adverse Reactions: Allergies Allergy/AdvReac Type Severity Reaction Status Date / Time No Known Allergies Allergy Verified 04/01/19 12:25 Home Medications: Ambulatory Orders Acetaminophen 500 mg PO BID 08/29/17 Atacand 8 mg PO DAILY 08/29/17 Lipitor 5 mg PO DAILY 08/29/17 Metformin HCl 500 mg PO BID 08/29/17 Prevacid 30 mg PO DAILY 08/29/17 Acetaminophen [Tylenol .Regular Strength -] 650 mg PO Q4H PRN tablet 08/30/17 Aspirin Coated [Ecotrin -] 81 mg PO DAILY #30 tablet.ec 08/30/17 Cyanocobalamin [Vitamin B12 -] 100 mcg PO DAILY #30 tablet 08/30/17 Cancer: No Cardiac Disorders: No CVA: Yes (RIGHT SIDED WEAKNESS , WITH RESIDUAL R UE WEAKNESS PER PT'S SON.) COPD: No CHF: No Dementia: No Diabetes: No GI Disorders: No Disorders: No HTN: Yes Hypercholesterolemia: Yes Liver Disease: No Seizures: No Thyroid Disease: No - Surgical History Abdominal Surgery: No Appendectomy: No Cardiac Surgery: No Cholecystectomy: No Lung Surgery: No Neurologic Surgery: No Orthopedic Surgery: Yes (rt lower leg w/ metal implant) - Psycho Social/Smoking Cessation Hx Smoking History: Unknown if ever smoked Have you smoked in the past 12 months: No Hx Alcohol Use: No Drug/Substance Use Hx: No Substance Use Type: None Hx Substance Use Treatment: No Review of Systems - Review of Systems Able to Perform ROS?: No (aphasic) *Physical Exam - Vital Signs Last Vital Signs Temp Pulse Resp BP Pulse Ox 90 16 137/80 100 04/01/19 12:10 04/01/19 12:10 04/01/19 12:10 04/01/19 12:10 - Physical Exam General Appearance: Yes: Nourished, Appropriately Dressed, Apparent Distress HEENT: positive: EOMI, JAYLON. negative: Normal Voice Neck: positive: Supple. negative: Carotid bruit Respiratory/Chest: positive: Lungs Clear, Normal Breath Sounds. negative: Respiratory Distress, Crackles, Rales, Rhonchi, Stridor, Wheezing Cardiovascular: positive: Regular Rhythm, Regular Rate, S1, S2. negative: Edema , JVD, Murmur Vascular Pulses: Dorsalis-Pedis (R): 4+, Doralis-Pedis (L): 4+ Gastrointestinal/Abdominal: positive: Flat, Soft. negative: Protuberent, Distended, Guarding, Rebound, Tenderness Musculoskeletal: negative: CVA Tenderness Extremity: positive: Normal Capillary Refill, Normal Inspection, Normal Range of Motion Integumentary: positive: Normal Color, Dry, Warm Neurologic: positive: Alert, Respond to painful stimul (in all ext except right upper), Confused, Other (exam limited t acute stroke, not following commands). negative: deburring machine operator II-XII NML intact (not following commands), Fully Oriented, Normal Mood/Affect, Facial Droop NIH Stroke Scale - Initial Evaluation Level of consciousness: Alert Ask patient the month and their age: Both incorrect Ask patient to open & close eyes; make fist and let go: Both incorrect Best gaze (horizontal eye movement): Partial gaze palsy Visual field testing: Bilateral hemianopia (blind including cortical blindness) Facial paresis (Show teeth/raise eyebrows/close eyes tight): Normal symmetrical movement Motor Function: Left Arm: Normal Motor Function: Right Arm: No movement Motor Function: Left Leg: Normal (extends leg 30 degrees for 5 seconds without drift) Motor Function: Right Leg: No movement Limb Ataxia: Untestable (Joint fused or limb amputated), explain: Sensory(Use pinprick test arms,legs,trunk,face/side to side): Severe to total sensory loss Best language (Describe picture, name items, read sentences): Severe aphasia Dysarthria (read several words): Near unintelligible or unable to speak Extinction and Inattention: Profound taran-inattention or extinction to more than one modality - Total Score NIH Stroke Scale Score: 24 Critical Care Time/MDM Note - Medical Decision Making Note: 64 yo female pmh CVA with R sided residual deficits and HTN presents tp the ED via EMS with sudden onset global aphasia and worsening weakness on the right side of her body, became non ambulatory at 10 am. On initial evaluation, pt noted to have right sided neglect, not following commands (speaks Kiswahili, Niece at bedside translating) however, opens eyes spontaneously, move left side of body and is protecting airway. At baseline, pt AOX4 and ambulatory. BGM 108 on arrival, pt taken for head CT immediately as code stroke. No acute bleed seen on ED read, confirmed emergently with radiology Verbal consent for TPA given by Son Xi Fragoso over the phone, he is currently in [facility] NIH 24. 2.5 hour window from onset of symptoms. Given TPA dose for weight Resident Dr. Ramos discusses case with Eduin Gonzales (Neuro interventional) and ED attending for potential thrombectomy, pt accepted Pt noted to have improving neuro exam with no R sided neglect and 4/5 strength with retraction to pain on the R lower ext Pt code carli to Eduin, discussed with Nilupis and 2 sons over the phone (Norm Fragoso) understands and consents transfer Discharge - Discharge Information Problems reviewed: Yes Clinical Impression/Diagnosis: Cerebrovascular accident (CVA) Qualifiers: CVA mechanism: unspecified Qualified Code(s): I63.9 - Cerebral infarction, unspecified Condition: Critical Disposition: TRANSFER ACUTE CARE/OTHER HOSP - Follow up/Referral Referrals: Chavez Arenas MD [Primary Care Provider] - - Patient Discharge Instructions - Post Discharge Activity
[2019-04-01 13:14] LABS: CHOLESTEROL 231 mg/dL (50-200); HDL CHOLESTEROL 33 mg/dL (40-60); LDL CHOLESTEROL (ONLY SJRH) 163 mg/dL (5-100); TRIGLYCERIDES 168 mg/dL (0-150)
[2019-04-01 13:16] VITALS: TEMP 98.1
[2019-04-01 14:02] VITALS: BP 122/70; PULSE 92
--- NOTE | 2019-04-02 10:46 | EKG ---
Test Reason : Blood Pressure : / mmHG Vent. Rate : 091 BPM Atrial Rate : 091 BPM P-R Int : 136 ms QRS Dur : 074 ms QT Int : 356 ms P-R-T Axes : 062 -23 036 degrees QTc Int : 437 ms POOR DATA QUALITY, INTERPRETATION MAY BE ADVERSELY AFFECTED SINUS RHYTHM WITH FUSION COMPLEXES JUNCTIONAL ST DEPRESSION, PROBABLY NORMAL BORDERLINE ECG WHEN COMPARED WITH ECG OF 28-AUG-2017 23:04, FUSION COMPLEXES ARE NOW PRESENT Confirmed by JAMI JANG, TANI ([id number]) on 04/02/2019 10:45:46 AM Referred By: Confirmed By:TANI FARRELL MD
== END 2019-04-01 13:05 | disposition short-term general hospital (02) ==
LOC: JER 12:08
DX: I63.9 Cerebral infarction, unspecified (principal); I10 Essential (primary) hypertension; I69.851 Hemiplegia and hemiparesis following other cerebrovascular disease affecting right dominant side; E78.00 Pure hypercholesterolemia, unspecified; I63.30 Cerebral infarction due to thrombosis of unspecified cerebral artery; R29.724 NIHSS score 24
CPT/HCPCS: 36415; 70450-TC; 80061; 82962; 83721; 85610; 85730; 93005; 93010; 96374; 96376; 99285-25; J2997; J7030